=== PATIENT | female | born 1970 ===

== ENCOUNTER → 2022-03-27 08:00 | Outpatient (CLI) | payer OTHER ==
[~2022-03-27 08:00] MED LIST: TYLENOL ARTHRI650 MG PO
== END | disposition home or self-care (01) ==
LOC: LAB 08:00 → ADM 11:00 → EDSTATUS 03-31 11:00 → CIR.AMB 03-31 11:00
PROVIDERS: ATTEND Orthopaedic Surgery Hand Surgery
DX: S52.531A Colles' fracture of right radius, initial encounter for closed fracture (principal); I10 Essential (primary) hypertension; Z20.822 Contact with and (suspected) exposure to COVID-19; Z01.810 Encounter for preprocedural cardiovascular examination